=== PATIENT | male | born 1980 | race Caucasian/White ===

== ENCOUNTER 2020-10-20 07:46 | Day surgery (SDC) | payer BC ==
[~2020-10-20] VITALS: Ht 182.9 cm; Wt 97.7 kg
[2020-10-20 08:14] VITALS: BP 144/100
[2020-10-20] MEDS ORDERED: PLEASE ENTER HEIGHT AND WEIGHT MC SCH (08:30)
[2020-10-20] MEDS ORDERED: SODIUM CHLORIDE 0.9% 1,000 ML IV SCH (08:30)
[2020-10-20 08:56] LABS: BASOPHILS % (AUTO) 1 % (0-1); EOSINOPHILS % (AUTO) 2 % (1-7); LYMPHOCYTES % (AUTO) 31 % (22-44); MEAN CORPUSCULAR HEMOGLOBIN 30.3 pg (27.5-34.5); MEAN CORPUSCULAR HGB CONC 34.3 g/dL (33.2-36.2); MONOCYTES % (AUTO) 10 % (2-9); NEUTROPHILS % (AUTO) 56 % (42-75); PLATELET COUNT 216 x10^3/uL (130-400); RED BLOOD COUNT 5.19 x10^6/uL (4.38-5.82); RED CELL DISTRIBUTION WIDTH 13.6 % (9.4-14.8)
[2020-10-20 09:04] LABS: ANION GAP 6 mmol/L (5-15); CALCIUM 8.6 mg/dL (8.5-10.1); CHLORIDE 110 mmol/L (98-107); CREATININE 0.99 mg/dL (0.7-1.3); MD NO
[2020-10-20] MEDS ORDERED: FENTANYL PF 100 MCG/2ML ONE (09:40)
[2020-10-20] MEDS ORDERED: MIDAZOLAM 1 MG/ML, 5ML ONE (09:40)
[2020-10-20] MEDS ORDERED: CEFAZOLIN 1,000 MG ONE (09:40)
[2020-10-20] MEDS ORDERED: CEFAZOLIN PMX 1GM/50ML 50 ML ONE (09:40)
[2020-10-20] MEDS ORDERED: LIDOCAINE 2%, 20ML ONE (09:40)
[2020-10-20] MEDS ORDERED: DIPHENHYDRAMINE 50 MG/ML, 1ML ONE (10:16)
== END 2020-10-20 12:36 | disposition home or self-care (01) ==
LOC: CACL 07:46
PROVIDERS: ATTEND Internal Medicine Cardiovascular Disease
DX: Z45.010 Encounter for checking and testing of cardiac pacemaker pulse generator [battery] (principal); I49.5 Sick sinus syndrome; F41.1 Generalized anxiety disorder; Z79.899 Other long term (current) drug therapy; Z88.8 Allergy status to other drugs, medicaments and biological substances
CPT/HCPCS: 33228; 36415; 71046; 80048; 85025; 99156; 99157; C1785; J0690; J1200; J2250; J3010